=== PATIENT | male | born 1980 | race Caucasian/White ===

== ENCOUNTER 2018-10-07 15:09 | Emergency (ER) | payer OTHER ==
[2018-10-07 15:21] VITALS: BP 136/85
--- NOTE | 2018-10-07 15:25 | UC ---
Laceration HPI - HPI Summary HPI Summary: 37 y/o male presents to the urgent care c/o left middle finger laceration w/ the edge or a grinding wheel at work around 1415pm today. Pt reports bleeding stopped w/ pressure. He can move finger w/o any difficulty. Pain at touch is 2/ 10. Pt states last Tetanus vaccine was probably more than 5 years. Pt denies numbness or tingling sensation over the finger or hand, SOB, chest pain, abdominal pain, N/V/D. - History Of Current Complaint Chief Complaint: UCLaceration Stated Complaint: FINGER LACERATION Time Seen by Provider: 10/07/18 15:23 Hx Obtained From: Patient Laceration Location: Finger - left middle finger w/ a rico Mechanism Of Injury: Sharp Trauma Onset/Duration: Lasting Hours - 1hr Severity: Mild Pain Intensity: 2 - at touch Pain Scale Used: 0-10 Numeric Aggravating Factors: Movement Related History: Dominant Hand Right - Allergies/Home Medications Allergies/Adverse Reactions: Allergies Allergy/AdvReac Type Severity Reaction Status Date / Time No Known Allergies Allergy Verified 10/07/18 15:22 PMH/Surg Hx/FS Hx/Imm Hx Previously Healthy: Yes - Pt denies PMHX - Surgical History Surgical History: Yes Surgery Procedure, Year, and Place: hernia repair as toddler - Family History Known Family History: Positive: Cardiac Disease, Hypertension, Diabetes - Social History Occupation: Employed Full-time Lives: With Family Alcohol Use: None Substance Use Type: None Smoking Status (MU): Current Every Day Smoker Type: Cigars Amount Used/How Often: 1/2 CIGAR DAILY - Immunization History Most Recent Tetanus Shot: THINKS WITHIN 5 YEARS Review of Systems All Other Systems Reviewed And Are Negative: Yes Constitutional: Positive: Negative Skin: Positive: Other - laceration of left middle finger w/ a metal griding Eyes: Positive: Negative ENT: Positive: Negative Respiratory: Positive: Negative Cardiovascular: Positive: Negative Gastrointestinal: Positive: Negative Genitourinary: Positive: Negative Motor: Positive: Negative Neurovascular: Positive: Negative Musculoskeletal: Positive: Other: - left middle finger pain Neurological: Positive: Negative Psychological: Positive: Negative Is Patient Immunocompromised?: No Physical Exam - Summary Physical Exam Summary: Vital Signs Reviewed: Yes General: well developed, well nourished male sitting in the examining table w/o any apparent distress Eye Exam: Normal Eyes: Positive: Conjunctiva Clear - PERRLA, EOMI, fundi grossly normal ENT: Positive: Normal ENT inspection, Hearing grossly normal, Pharynx normal, TMs normal Neck: Positive: Supple, Nontender, No Lymphadenopathy Respiratory: Positive: Chest non-tender, Lungs clear, Normal breath sounds, No respiratory distress Cardiovascular: Positive: RRR, No Murmur, Pulses Normal, Brisk Capillary Refill Abdomen Description: Positive: Nontender, No Organomegaly, Soft. Negative: CVA Tenderness (R), CVA Tenderness (L) Bowel Sounds: Positive: Present Musculoskeletal: Positive: Strength Intact, ROM Intact, No Edema Neurological: Positive: Alert, Muscle Tone Normal Psychological Exam: Normal Skin: Positive:Medial side of LF middle finger at the level of the PIPJ w/ with a linear superficial laceration about 1.2cm in size, bleeding, no foreign body observed. mild tenderness to palpation, No ecchymosis observed. FROM of LF hand and left middle finger, sensation intact, capillary refill brisk, and pulses WNL. Triage Information Reviewed: Yes Vital Signs: Initial Vital Signs Temp 98.2 F 10/07/18 15:18 Pulse 99 10/07/18 15:18 Resp 16 10/07/18 15:18 BP 136/85 10/07/18 15:18 Pulse Ox 99 10/07/18 15:18 Laceration Repair - Laceration Repair 1 Description: Linear Laceration Size After Repair: Length (cm) - 1.2cm Modified For Repair: No Type Injection: Local Anesthesia Used: 1.0% Lido - 2 ml Digital block at the base of the left middle finger Cleansing Completed Via Routine Prep: Yes Irrigation With Pressure Irrigation Device: Yes Closure Material: Sutures - 4 Closure Method: Single Layer Suture Of: Skin, SQ Suture Type: Nylon Laceration Course/Dx - Course/Dx Course Of Treatment: 37 y/o male presents to the urgent care c/o left middle finger laceration w/ the edge or a grinding wheel at work around 1415pm today. Pt reports bleeding stopped w/ pressure. He can move finger w/o any difficulty. Pain at touch is 2/10. Pt states last Tetanus vaccine was probably more than 5 years. Pt denies numbness or tingling sensation over the finger or hand, SOB, chest pain, abdominal pain, N/V/D. Hx w/ Medial side of LF middle finger at the level of the PIPJ w/ with a linear superficial laceration about 1.2cm in size, bleeding on examination. LACERATION PROCEDURE NOTE: . Copious irrigation was done with saline by the nurse and the wound explored. There was no FB or deep structure injury noted. FROM of left forearm. procedure was explained and consent obtained, Timeout performed. The wound was anesthetized with digital block w/ 2 mL of 1% lido with good anesthesia. Sterile drape and prep were don. There were 5 sutures with 5.0 nylon type of suture. The length of the wound after closure was 1.2cm. No debridement. Pt tolerated the procedure well without adverse effects. Neurovascular intact and FROM of left middle finger. Tdap ordered and applied by nurse. Pt advised to f/u suture removal in 10-12 days and if any signs of infection develop to immediately return to the urgent care of PCP for further management and treatment. Pt understood and agreed and left the clinic ambulating A&Ox3. - Differential Dx - Laceration/Wound Differental Diagnoses: Abrasion, Laceration, Puncture Wound, Tendon Laceration - Diagnosis Provider Diagnosis: Laceration of left middle finger Discharge - Sign-Out/Discharge Documenting (check all that apply): Patient Departure - D/C home All imaging exams completed and their final reports reviewed: No Studies - Discharge Plan Condition: Stable Disposition: HOME Prescriptions: Bacitracin OINTMENT* 1 applic TOPICAL BID #1 tube Patient Education Materials: Care For Your Stitches (ED), Laceration (ED) Referrals: Zainab Kohler PA [Primary Care Provider] - 1 Week Additional Instructions: 1-Please apply topical antibiotic over the wound. Keep wound clean and dry 2- F/u suture removal in 10-12 days days w/ your PCP or here at the urgent care. 3-Take Ibuprofen or Tylenol PO q6-8hrs prn for pain or swelling. 4- If you develop fever or redness around your finger despite the antibiotic please go to the ER immediately or return to the Urgent care. - Billing Disposition and Condition Condition: STABLE Disposition: Home
[2018-10-07] MEDS ORDERED: Tetan/Diph/Pertus SYR(Tdap)* 0.5 ML SYR(BOOSTRIX) use SYR IM ONE (15:31)
[2018-10-07] MEDS ORDERED: Lidocaine 1%* 5 ML VIAL INJ ONE (15:32)
== END 2018-10-07 16:30 | disposition home or self-care (01) ==
LOC: UCEAST 15:09
DX: S61.213A Laceration without foreign body of left middle finger without damage to nail, initial encounter (principal); F17.290 Nicotine dependence, other tobacco product, uncomplicated; W31.1XXA Contact with metalworking machines, initial encounter; Y92.89 Other specified places as the place of occurrence of the external cause; Y99.0 Civilian activity done for income or pay
CPT/HCPCS: 12001; 90715; 99212; G0463

== ENCOUNTER 2018-10-19 15:50 | Emergency (ER) | payer OTHER ==
[2018-10-19 16:24] VITALS: BP 135/77
--- NOTE | 2018-10-19 17:32 | UC ---
HPI Wound/Suture Re-check - HPI Summary HPI Summary: PT HERE FOR SUTURE REMOVAL LEFT 3RD FINGER. SUTURES PLACED HERE 12 DAYS AGO. STATES A FEW OF THE STITCHES FELL OUT BUT WOUND IS HEALING WELL. - History Of Current Complaint Chief Complaint: UCLaceration Stated Complaint: SUTURE REMOVAL Time Seen by Provider: 10/19/18 16:04 Hx Obtained From: Patient Severity: Mild Pain Intensity: 0 Pain Scale Used: 0-10 Numeric - Allergies/Home Medications Allergies/Adverse Reactions: Allergies Allergy/AdvReac Type Severity Reaction Status Date / Time No Known Allergies Allergy Verified 10/19/18 16:06 PMH/Surg Hx/FS Hx/Imm Hx Previously Healthy: Yes - Surgical History Surgical History: Yes Surgery Procedure, Year, and Place: hernia repair as toddler - Family History Known Family History: Positive: Cardiac Disease, Hypertension, Diabetes - Social History Alcohol Use: None Substance Use Type: None Smoking Status (MU): Current Every Day Smoker Type: Cigars Amount Used/How Often: 1/2 CIGAR DAILY - Immunization History Most Recent Tetanus Shot: THINKS WITHIN 5 YEARS Review of Systems All Other Systems Reviewed And Are Negative: Yes Constitutional: Positive: Negative Skin: Positive: Other - HEALING LACERATION LEFT 3RD FINGER Respiratory: Positive: Negative Cardiovascular: Positive: Negative Gastrointestinal: Positive: Negative Musculoskeletal: Positive: Negative Physical Exam Triage Information Reviewed: Yes Appearance: Well-Appearing, No Pain Distress, Well-Nourished Vital Signs: Initial Vital Signs Temp 98 F 10/19/18 16:02 Pulse 98 10/19/18 16:02 Resp 17 10/19/18 16:02 BP 135/77 10/19/18 16:02 Pulse Ox 100 10/19/18 16:02 Vital Signs Reviewed: Yes Eyes: Positive: Conjunctiva Clear ENT: Positive: Hearing grossly normal Neck: Positive: Supple Respiratory: Positive: No respiratory distress, No accessory muscle use Cardiovascular: Positive: Pulses Normal Abdomen Description: Positive: Soft Musculoskeletal: Positive: ROM Intact, No Edema Neurological: Positive: Alert Psychological: Positive: Age Appropriate Behavior Skin: Positive: Other - WOUND C/D/I. NO ERYTHEMA OR DRAINAGE. Course/Dx - Course Course Of Treatment: 2 REMAINING SUTURES REMOVED WITHOUT DIFFICULTY. WOUND REMAINED INTACT THROUGH FULL ROM. ADVISED PT TO BE CAUTIOUS LACERATION WHILE HEALED WILL STILL BE WEAK FOR SOME TIME. PT DECLINED STERISTRIPS TODAY. - Diagnosis Provider Diagnosis: Visit for suture removal Discharge - Sign-Out/Discharge Documenting (check all that apply): Patient Departure All imaging exams completed and their final reports reviewed: No Studies - Discharge Plan Condition: Stable Disposition: HOME Patient Education Materials: Stitches Removal (ED) Referrals: Zainab Kohler PA [Primary Care Provider] - Additional Instructions: 2 SUTURES REMOVED TODAY WITHOUT DIFFICULTY. THE SKIN WILL BE WEAK FOR A COUPLE OF MONTHS. BE CAUTIOUS WITH YOUR FINGER. SEEK FOLLOW-UP IF YOU DEVELOP SPREADING REDNESS OF THE SKIN, PURULENT DRAINAGE, FEVER, INCREASED PAIN OR ANY OTHER CONCERNING SYMPTOMS. - Billing Disposition and Condition Condition: STABLE Disposition: Home
== END 2018-10-19 16:35 | disposition home or self-care (01) ==
LOC: UCEAST 15:50
DX: S61.213D Laceration without foreign body of left middle finger without damage to nail, subsequent encounter (principal); W45.8XXD Other foreign body or object entering through skin, subsequent encounter; F17.290 Nicotine dependence, other tobacco product, uncomplicated

== ENCOUNTER 2019-10-17 21:28 | Emergency (ER) | payer OTHER ==
--- OUTSIDE RECORDS SUMMARY | 2019-10-17 21:34 | XMS REPORT | Continuity of Care Document ---
:1980 External Reference #:[id number] Author Name Lili Rossi FNP (transmitted by agent of provider Rupa Martinez) Address [address] [place] [id number] Care Team Providers Name Role Phone Lili Rossi FNP - Family Care Team Information Fisheries Officer [phone] Problems Active Problems Provider Date Chest pain Jenn Forbes ANP Onset: 01/05/2013 Skin sensation disturbance Jenn Forbes ANP Onset: 01/05/2013 Palpitations Jenn Forbes ANP Onset: 01/05/2013 Social History Type Date Description Comments Sex Unknown ETOH Use Drinks Alcoholic Beverages Rarely Tobacco Use Start: Unknown Patient is a current 1 tipped cigar a day smoker, smokes every day Recreational Drug Use Denies Drug Use Smoking Status Reviewed: 07/28/19 Patient is a current 1 tipped cigar a day smoker, smokes every day Allergies, Adverse Reactions, Alerts Description No Known Drug Allergies Medications Active Medications SIG Qnty Indications Ordering Provider Date Ibuprofen 200 3 tabs by mouth 90tabs Lili Rossi FNP 06/02/2019 200mg three times a day Tablets as needed, take with food. Chantix Starting begin starter 1box Lili Rossi FNP 06/02/2019 Month [place] pack as directed 0.5mg X 11 & 1 mg X 42 Tablets Sildenafil Citrate take 2 tablets by 60tabs Lili Rossi FNP 06/02/2019 20mg mouth once daily Tablets about 1 hour before sexual activity. Immunizations Description No Information Available Vital Signs Date Vital Result Comment 07/28/2019 10:26am BP Systolic 136 mmHg BP Diastolic 83 mmHg Body Temperature 97.5 F Heart Rate 91 /min Respiratory Rate 16 /min Height 70.75 inches 5'10.75" Weight 157.00 lb BMI (Body Mass Index) 22.0 kg/m2 BSA (Body Surface Area) 1.90 m2 [employer] body weight in kilograms 77 kg O2 % BldC Oximetry 98 % 06/02/2019 1:54pm BP Systolic 127 mmHg BP Diastolic 79 mmHg Body Temperature 97.9 F Heart Rate 88 /min Respiratory Rate 15 /min Height 70 inches 5'10" Weight 156.00 lb BMI (Body Mass Index) 22.4 kg/m2 BSA (Body Surface Area) 1.88 m2 [employer] body weight in kilograms 75 kg O2 % BldC Oximetry 98 % Results Description No Information Available Procedures Description No Information Available Medical Devices Description No Information Available Encounters Type Date Location Provider Dx Diagnosis Office Visit 07/28/2019 [facility] Lili Rossi F17.210 Nicotine dependence, 10:30a [facility] cigarettes, uncomplicated Z71.6 Tobacco abuse counseling Office Visit 06/02/2019 2:00p [facility] Lili Rossi, M79.645 Pain in left [facility] finger(s) F17.210 Nicotine dependence, cigarettes, uncomplicated F52.21 Male erectile disorder Z71.6 Tobacco abuse counseling Assessments Date Code Description Provider 07/28/2019 F17.210 Nicotine dependence, cigarettes, uncomplicated Lili Rossi FNP 07/28/2019 Z71.6 Tobacco abuse counseling Lili Rossi FNP 06/02/2019 M79.645 Pain in left finger(s) Lili Rossi FNP 06/02/2019 F17.210 Nicotine dependence, cigarettes, uncomplicated Lili Rossi FNP 06/02/2019 F52.21 Male erectile disorder Lili Rossi FNP 06/02/2019 Z71.6 Tobacco abuse counseling Lili Rossi FNP Plan of Treatment Future Appointment(s):11/03/2019 10:00 am - Lili Rossi FNP at [facility]07/28/2019 - Lili Rossi FNPF17.210 Nicotine dependence, cigarettes, uncomplicatedComments:Has started Chantix and working well for cravings but having bad daily headaches.Advised that headaches are a pretty common SE and he could take the Chantix just once/day instead of twice to see if that helps. He would like to try this instead of stopping Chantix.Report back in 3 months.Follow up:3 months smoking [id number] Tobacco abuse counselingAllComments:Paperwork will be filled out for DMV once I review the ER records from your visit.I will submit the paperwork by the end of Wednesday. Functional Status Functional Condition Comment Date Status Glasses Active Independent with all ADL's Active Mental Status Description No Information Available Referrals Description No Information Available
--- OUTSIDE RECORDS SUMMARY | 2019-10-17 21:34 | XMS REPORT | Continuity of Care Document ---
:1980 External Reference #:[id number] Author Name Lili Rossi FNP (transmitted by agent of provider Rupa Martinez) Address [address] [place] [id number] Care Team Providers Name Role Phone Lili Rossi FNP - Family Care Team Information Senior Regulatory Affairs Specialist [phone] Problems Active Problems Provider Date Chest pain [...] kg/m2 BSA (Body Surface Area) 1.90 m2 [employer] body weight in kilograms 77 kg O2 % BldC Oximetry 98 % 06/02/2019 1:54pm BP Systolic 127 mmHg BP Diastolic 79 mmHg Body Temperature 97.9 F Heart Rate 88 /min Respiratory Rate 15 /min Height 70 inches 5'10" Weight 156.00 lb BMI (Body Mass Index) 22.4 kg/m2 BSA (Body Surface Area) 1.88 m2 [employer] body weight in kilograms 75 kg O2 % BldC Oximetry 98 % Results Description No Information Available Procedures Description No Information Available Medical Devices Description No Information Available Encounters Type Date Location Provider Dx Diagnosis Office Visit 07/28/2019 [facility] Lili Rossi, F17.210 Nicotine dependence, 10:30a [facility] cigarettes, uncomplicated Z71.6 Tobacco abuse counseling Office Visit 06/02/2019 2:00p [facility] Lili Rossi, M79.645 Pain in left [facility] finger(s) F17.210 Nicotine dependence, cigarettes, uncomplicated F52.21 Male erectile disorder Z71.6 Tobacco abuse counseling Assessments Date Code Description Provider 07/28/2019 F17.210 Nicotine dependence, cigarettes, uncomplicated Lili Rossi FNP 07/28/2019 Z71.6 Tobacco abuse counseling Llii Rossi FNP 06/02/2019 M79.645 Pain in left finger(s) Lili Rossi FNP 06/02/2019 F17.210 Nicotine dependence, cigarettes, uncomplicated Lili Rossi FNP 06/02/2019 F52.21 Male erectile disorder Lili Rossi FNP 06/02/2019 Z71.6 Tobacco abuse counseling Lili Rossi FNP Plan of Treatment Future Appointment(s):11/03/2019 10:00 am - Lili Rossi FNP at [facility]06/02/2019 - Lili Rossi FNPM79.645 Pain in left finger(s) Comments:Suspect tendonitis from repetitive motion at work.Try using a thumb brace.Ice when not at work and rest it as much as possible.If it's really hurting you can try 600mg ibuprofen if needed. Call for worsening.F17.210 Nicotine dependence, cigarettes, uncomplicatedComments:Come up with a quit date! Begin chantix 1 week before.Call me for problems or side effects.Follow up: early July smoking [id number] Male erectile disorderComments:Refilled Viagra.Z71.6 Tobacco abuse counseling Functional Status Functional Condition Comment Date Status Glasses Active Independent with all ADL's Active Mental Status Description No Information Available Referrals Description No Information Available
[2019-10-17 21:41] VITALS: BP 115/55
--- NOTE | 2019-10-17 21:57 | UC ---
FLU HPI - HPI Summary HPI Summary: Patient is a 38yo male presenting with nasal congestion, dry cough, sore throat , body aches, and chills that "came on suddenly at 1400 today." Patient denies sob and wheezing. Denies n/v. Denies decreased appetite and fluid intake - History of Current Complaint Chief Complaint: UCGeneralIllness Stated Complaint: COUGH, CONGESTION, CHILLS Hx Obtained From: Patient Pain Intensity: 8 Pain Scale Used: 0-10 Numeric - Allergy/Home Medications Allergies/Adverse Reactions: Allergies Allergy/AdvReac Type Severity Reaction Status Date / Time No Known Allergies Allergy Verified 10/17/19 21:41 PMH/Surg Hx/FS Hx/Imm Hx - Surgical History Surgical History: Yes Surgery Procedure, Year, and Place: hernia repair as toddler - Family History Known Family History: Positive: Cardiac Disease, Hypertension, Diabetes - Social History Alcohol Use: Occasionally Substance Use Type: None Smoking Status (MU): Light Every Day Tobacco Smoker Type: Cigarettes, Cigars Amount Used/How Often: 1/2 ppd - Immunization History Most Recent Tetanus Shot: THINKS WITHIN 5 YEARS Review of Systems All Other Systems Reviewed And Are Negative: Yes Constitutional: Positive: Chills, Fatigue ENT: Positive: Sore Throat, Sinus Congestion Respiratory: Positive: Cough - dry Cardiovascular: Positive: Negative Gastrointestinal: Positive: Negative Musculoskeletal: Positive: Myalgia Neurological: Positive: Headache Physical Exam - Summary Physical Exam Summary: Vital Signs Reviewed: Yes A+Ox3, no distress Eyes: Conjunctiva Clear ENT: Hearing grossly normal TM x 2 clear, moist, uvula midline, no exudate, no erythema Neck: Positive: Supple Respiratory: Positive: No respiratory distress, No accessory muscle use + CTA throughout no w/r Cardiovascular: RRR nl s1, s2 no m/r Musculoskeletal Exam: THAYER x 4 without difficulty Neurological: Positive: Alert Psychological: Positive: age appropriate behavior Skin: Positive: no rash, no ecchymosis Vital Signs: Initial Vital Signs Temp 98.8 F 10/17/19 21:37 Pulse 93 10/17/19 21:37 Resp 17 10/17/19 21:37 BP 115/55 10/17/19 21:37 Pulse Ox 99 10/17/19 21:37 Lab Results 10/17/19 Range/Units 21:47 Influenza A (Rapid) Negative (Negative) Influenza B (Rapid) Negative (Negative) Flu Course/Dx - Course Course Of Treatment: Negative rapid flu. Patient presenting with flu-like symptoms. When educated on influenza and treatment with tamiflu, patient believed it to be more beneficial to take the tamiflu at this point. The patient received the first dose here to urgent care and was sent home with prescription for the rest. Instructed to continue symptomatic treatment and to return or go to ED with any new or worsening symptoms. Patient voiced understanding and agreed with the treatment plan. - Differential Dx/Diagnosis Differential Diagnosis/HQI/PQRI: Bronchitis, Influenza, Upper Respiratory Infection Provider Diagnosis: Flu-like symptoms Discharge ED - Sign-Out/Discharge Documenting (check all that apply): Patient Departure All imaging exams completed and their final reports reviewed: No Studies - Discharge Plan Condition: Stable Disposition: HOME Prescriptions: Oseltamivir CAP* [Tamiflu CAP*] 75 mg PO BID #9 cap Patient Education Materials: Viral Syndrome (ED) Forms: *Work Release Referrals: Lili Rossi NP [Primary Care Provider] - If Needed Additional Instructions: As discussed, you tested negative for influenza today, but will be treated based on your symptoms. Take tamiflu as prescribed. You received the first dose tonight. You may take tylenol and/or ibuprofen for fever and pain relief. Get plenty of rest and increase your fluid intake. Follow up with your primary care provider if symptoms worsen or do not resolve within 5-7 days. - Billing Disposition and Condition Condition: STABLE Disposition: Home - Attestation Statements Provider Attestation: This patient was not seen by me. I was available for consult. Chart reviewed. TITA
[2019-10-17 21:59] LABS: Influenza A Molecular Negative (Negative); Influenza B Molecular Negative (Negative)
[2019-10-17] MEDS ORDERED: Oseltamivir CAP* 75 MG CAP PO ONE (22:04)
== END 2019-10-17 22:09 | disposition home or self-care (01) ==
LOC: UCCORT 21:28
DX: R09.81 Nasal congestion (principal); R05 Cough; J02.9 Acute pharyngitis, unspecified; M79.10 Myalgia, unspecified site; F17.210 Nicotine dependence, cigarettes, uncomplicated; R53.83 Other fatigue; R51 Headache
CPT/HCPCS: 99212; A9270-GY; G0463